=== PATIENT | female | born 1980 ===

== ENCOUNTER 2018-11-18 07:30 | Inpatient (IN) | payer BC ==
[~2018-11-18] VITALS: Ht 157.5 cm; Wt 69.9 kg
[~2018-11-18 07:30] MED LIST: NKM
[2018-12-14] VITALS (16 sets, daily range): BP systolic 103–135; BP diastolic 60–83
--- NOTE | 2018-12-14 02:45 | History and Physical Report ---
DATE OF ADMISSION: 12/14/2018 NOTE: POOR AUDIO REASON FOR ADMISSION: The patient is a 38-year-old female who presented to the hospital to undergo Supracervical Abdominal Hysterectomy and Bilateral Salpingectomy. HISTORY OF PRESENT ILLNESS: The patient has a history of heavy vaginal bleeding. She underwent hysteroscopy and endometrial hydrothermal ablation in the past secondary to heavy vaginal bleeding. She did not respond to these measurements. She continued to have heavy vaginal bleeding with passage of blood clots. She describes menstrual cycles as being long and heavy and quite painful. The patient was also placed on a trial of oral contraceptive in the past. She did not respond to the treatment. She did not tolerate some of the side effects. She did not desire to continue with the oral contraceptive or any other medical treatment. The patient also has complaints of severe pelvic pain and heavy cramping and abdominal pain , which is associated with her period and bleeding; however, continues throughout the entire cycle. The patient has been placed on Anaprox narcotics medication for pain management; however, she continues to complain of the same symptoms. Past ANNUAL GIVING OFFICER HISTORY: Significant for section x2 and spontaneous x2. Significant for hysteroscopy and endometrial hydrothermal ablation. 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 PAST MEDICAL HISTORY: Unremarkable. PAST SURGICAL HISTORY: section and cholecystectomy. The patient has had a history of normal Pap smears in the past. However her last Pap smear revealed ASCUS, atypical squamous cells of undetermined significance. She underwent colposcopy and biopsy, which were all within normal limits. The patient also underwent hysteroscopy and HTA in the past. Endometrial sampling revealed complex hyperplasia without atypia. The patient, however, did not respond to ablation and she continued to have heavy vaginal bleeding. She underwent an ultrasound examination, which revealed uterus measuring 10.9 x 5.4 x 5.6 cm. Endometrium was noted to be thickened. Right Ovary was found to be 3.8 x 2.0 x 2.8 cm. The left ovary was 4.9 x 2.0 x 3.1 cm. ASSESSMENT AND PLAN: This is a 38-year-old female with history of heavy vaginal bleeding and history of pelvic pain. The patient is status post endometrial hydrothermal ablation, however, she continues to have heavy vaginal bleeding and pain, at times bleeding twice a month with passage of blood clots. She also complains of pain and cramping. The patient's symptoms have not resolved with hydrothermal ablation and a trial of oral contraceptives as well as pain medication. We have counseled the patient regarding above findings. We discussed with the patient in detail regarding options of management including medical versus surgical options. The patient does not desire to proceed with any medical management at this point, and she desires to proceed with definitive surgical management of the above namely abdominal hysterectomy. The patient does not desire any future pregnancies and she is quite certain of that. Patient has been seen by Dr. Walker regarding above for second opinion. The patient understood that after abdominal hysterectomy, she will not be able to bear any children. We discussed with the patient regarding total abdominal hysterectomy versus supracervical abdominal hysterectomy. She desires to keep her cervix and understands there is a possibility of future issues with the Pap smear that may require additional procedures. We also discussed with the patient regarding bilateral salpingectomy. The risks and benefits of the procedure were explained to her fully as well. The risk of possible complications including but not limited to bleeding, infection, bladder injury, bowel injury, wound infection, wound dehiscence among other injuries have been explained to her fully. She has been counseled regarding possible blood transfusion and risks associated with that have been explained as well. We discussed with the patient regarding the fact that due to various intraoperative findings, we may need to deviate from the planned procedure or abandon the procedure altogether. We discussed with the patient regarding the fact that based on this procedure, she may require additional procedures in the future. We also discussed with the patient regarding the fact that that that may cause harm and injury to the other vital organs. Risks, benefits, complications, alternatives modes of management were explained to her in great detail. All her questions have been answered fully. We also discussed with the patient regarding the nature of pelvic pain and the fact that after hysterectomy, she may continue to experience pelvic pain , which may be attributed to other etiologies. The patient was seen and evaluated by her primary physician. She has undergone medical clearance for this procedure. The patient understands and desires to proceed with the above procedure. Dev Bradshaw M.D. DR: [place]O JOB#: [id number] CC: MAXIM
[2018-12-14] MEDS ORDERED: ceFAZolin sod 2 GM in D5W 110 ML IVPB ONE (05:30)
--- NOTE | 2018-12-14 06:30 | NUR ---
IV LR WAS STARTED BY ELZBIETA IQBAL RN. NO S/S OF INFILTRATION.
[2018-12-14] MEDS ORDERED: LR 1000ml 1,000 ML IVLG SCH (06:59)
[2018-12-14 07:00] LABS: EOSINOPHILS % (AUTO) 5.2 % (0.0-3.0); HEMATOCRIT 37.6 % (37.0-47.0); HEMOGLOBIN 13.2 G/DL (12.0-16.0); MEAN CORPUSCULAR VOLUME 88 FL (80-99); MONOCYTES % (AUTO) 6.9 % (1.0-10.0); NEUTROPHILS % (AUTO) 56.8 % (45.0-75.0); PLATELET COUNT 185 K/UL (150-450); RED BLOOD COUNT 4.27 M/UL (4.20-5.40); RED CELL DISTRIBUTION WIDTH 11.2 % (11.6-14.8); WHITE BLOOD COUNT 5.9 K/UL (4.8-10.8)
[2018-12-14] MEDS ORDERED: oxyCODONE HCL/Acetaminophen 5/325mg ORAL PRN (07:00)
[2018-12-14] MEDS ORDERED: Acetaminophen (Non formulary) 100 ML IV ONE (07:00)
[2018-12-14] MEDS ORDERED: fentaNYL 100 mcg/2 mL IV PRN (07:00)
[2018-12-14] MEDS ORDERED: HYDROcodone/Acetamin 5/325 tab ORAL PRN (07:00)
[2018-12-14] MEDS ORDERED: Atropine Sulfate 0.4mg/ml inj IVP PRN (07:00)
[2018-12-14] MEDS ORDERED: Labetalol 5mg/ml 20ml vial IV PRN (07:00)
[2018-12-14] MEDS ORDERED: Ketorolac 30mg Inj IV PRN ×2 (07:00)
[2018-12-14] MEDS ORDERED: DiphenhydrAMINE 50mg/ml Inj IVP PRN ×2 (07:00→12:30)
[2018-12-14] MEDS ORDERED: Metoclopramide 10mg/2ml Inj IVP PRN (07:00)
[2018-12-14] MEDS ORDERED: LORazepam Inj 2mg/ml 1ml IV PRN (07:00)
[2018-12-14] MEDS ORDERED: Midazolam 2mg/2ml Inj IVP PRN (07:00)
[2018-12-14] MEDS ORDERED: Meperidine 50mg/ml Inj(FOR RIGORS ONLY) IVP PRN (07:00)
[2018-12-14] MEDS ORDERED: HYDROcodone/Acetamin 7.5/325 tab ORAL PRN (07:00)
--- NOTE | 2018-12-14 07:00 | Anethesia Preoperative Eval ---
Anesthesia Pre-op PMH/ROS General Date of Evaluation: Dec 14, 2018 Time of Evaluation: 07:31 Anesthesiologist: Agnes ASA Score: ASA 2 Mallampati Score Class I : Soft palate, uvula, fauces, pillars visible Class II: Soft palate, uvula, fauces visible Class III: Soft palate, base of uvula visible Class IV: Only hard plate visible Mallampati Classification: Class II Surgeon: Augustine Diagnosis: Vaginal Bleeding Surgical Procedure: Total Abdominal Hysterectomy, Bilateral Salpingectomy Anesthesia History: none Family History: no anesthesia problems Allergies: Coded Allergies: No Known Allergies (Unverified , 07/25/18) Medications: see eMAR Patient NPO?: Yes Past Medical History Hematology/Immune: Reports: anemia PSxH Narrative: Cystectomy, Endometrial Ablation, Cholecystectomy Anesthesia Pre-op Phys. Exam Physician Exam Last Vital Signs Date Time Temp Pulse Resp B/P (MAP) Pulse Ox O2 Delivery O2 Flow Rate FiO2 12/14/18 06:44 Room Air 12/14/18 06:33 97.1 56 20 120/65 (83) 98 Constitutional: NAD Neurologic: CN 2-12 intact Cardiovascular: RRR Respiratory: CTA Gastrointestinal: S/NT/ND Airway Exam Mallampati Score: Class II MO: full ROM: full Teeth: missing, intact Anesthesia Pre-op A/P Labs Hematology Test 12/14/18 06:35 White Blood Count Pending Red Blood Count Pending Hemoglobin Pending Hematocrit Pending Mean Corpuscular Volume Pending Mean Corpuscular Hemoglobin Pending Mean Corpuscular Hemoglobin Concent Pending Red Cell Distribution Width Pending Platelet Count Pending Mean Platelet Volume Pending Neutrophils (%) (Auto) Pending Lymphocytes (%) (Auto) Pending Monocytes (%) (Auto) Pending Eosinophils (%) (Auto) Pending Basophils (%) (Auto) Pending Chemistry Test 12/14/18 06:35 Sodium Level Pending Potassium Level Pending Chloride Level Pending Carbon Dioxide Level Pending Blood Urea Nitrogen Pending Creatinine Pending Estimat Glomerular Filtration Rate Pending Glucose Level Pending Calcium Level Pending Urine Test Test 12/14/18 06:35 Urine HCG, Qualitative Pending Risk Assessment & Plan Assessment: ASA 2 Plan: GA, SED GlideScope Go Status Change Before Surgery: No Pre-Antibiotics Dru grams Ancef IV Given Within 1 Hr of Incision: Yes Time Given: 07:46 Ravinder Alarcon MD Dec 14, 2018 07:00
[2018-12-14 07:07] LABS: ANION GAP 9 mmol/L (5-15); BLOOD UREA NITROGEN 9 mg/dL (7-18); CALCIUM 8.4 MG/DL (8.5-10.1); CARBON DIOXIDE 27 MMOL/L (21-32); CHLORIDE 104 MMOL/L (98-107); CREATININE 0.6 MG/DL (0.55-1.30); POTASSIUM 3.1 MMOL/L (3.5-5.1); SODIUM 140 MMOL/L (136-145)
[2018-12-14] MEDS ORDERED: Sodium Chloride 10ml vial INJ ONE (07:12)
[2018-12-14] MEDS ORDERED: Lidocaine 1% MPF 10mg/ml 5ml ONE ×2 (07:12→09:05)
[2018-12-14] MEDS ORDERED: Dexamethasone 4mg/ml vial ONE (07:12)
[2018-12-14] MEDS ORDERED: Sterile Water Irrig 1000ml IRRIG ONE (07:30)
[2018-12-14] MEDS ORDERED: Propofol 1,000mg/ 100ml btl IV ONE (07:30)
[2018-12-14] MEDS ORDERED: NS Irrig 1000ml ONE (07:30)
[2018-12-14] MEDS ORDERED: NS Irrig 1000ml IRRIG ONE (07:36)
--- NOTE | 2018-12-14 08:09 | Immediate Post-Op Evaluation ---
Immediate Post-Op Evalulation Immediate Post-Op Evalulation Procedure: Total Abdominal Hysterectomy, Bilateral Salpingectomy Date of Evaluation: Dec 14, 2018 Time of Evaluation: 09:55 IV Fluids: 700 LR Blood Products: 0 Estimated Blood Loss: 75 Urinary Output: 300 Blood Pressure Systolic: 114 Blood Pressure Diastolic: 72 Pulse Rate: 79 Respiratory Rate: 16 O2 Sat by Pulse Oximetry: 100 Temperature (Fahrenheit): 98.7 Pain Score (1-10): 2 Nausea: No Vomiting: No Complications 0 Patient Status: awake, reacts, patent, extubated, none Hydration Status: adequate Dru Grams Ancef IV Given Within 1 Hr of Incision: Yes Time Given: 07:46 Ravinder Alarcon MD Dec 14, 2018 08:09
--- NOTE | 2018-12-14 08:11 | Pre-Procedure Note/Attestation ---
Pre-Procedure Note/Attestation Complete Prior to Procedure Procedure Narrative: Supra Cervical Abdominal Hysterectomy. Bilateral Salpingectomy Indications for Procedure Pre-Operative Diagnosis: Heavy Vaginal Bleeding. Pelvic Pain Attestation I attest that I discussed the nature of the procedure; its benefits; risks and complications; and alternatives (and the risks and benefits of such alternatives ), prior to the procedure, with the patient (or the patient's legal contact representative). I attest that, if there was a reasonable possibility of needing a blood transfusion, the patient (or the patient's legal contact representative) was given the [facility] standardized written summary, pursuant to the [place] Blood Safety Act ([place] Health and Safety Code # 1645, as amended). I attest that I re-evaluated the patient just prior to the surgery and that there has been no change in the patient's H&P, except as documented below: Dev Bradshaw MD Dec 14, 2018 08:11
[2018-12-14] MEDS ORDERED: Surgicel 4in x 8in TOPIC ONE (08:45)
[2018-12-14] MEDS ORDERED: CLINDAMYCIN 600 MG IV ONE (09:04)
[2018-12-14] MEDS ORDERED: Rate Change PCA 1 Each MISC PRN ×2 (09:15→12:30)
[2018-12-14] MEDS ORDERED: Glycopyrrolate 0.2mg/ml 1ml Vial ONE (09:25)
[2018-12-14] MEDS ORDERED: Neostigmine 1mg/ml 10ml Inj ONE (09:25)
[2018-12-14] MEDS ORDERED: PCA Education Pamphlet MISC ONE (09:30)
[2018-12-14] MEDS ORDERED: PCA HYDROmorphone 1mg/ml 30 ML IV PRN (09:30)
--- NOTE | 2018-12-14 09:35 | Brief Operative Note ---
Immediate Post Operative Note Operative Note Pre-op Diagnosis: Heavy Vaginal Bleeding. Pelvic Pain Procedure: Laparotomy. Supra Cervical Abdominal Hysterectomy. Bilateral Salpingectomy. Lysis of Adhesions Post-op Diagnosis: Heavy Vaginal Bleeding. Pelvic Pain Post-op Diagnosis: same as pre-op Surgeon: Everton Bradshaw MD Windows Systems Engineer: Radha Walker MD Anesthesia: general Specimen: yes - Uterus. Bilateral Fallopian Tubes Complications: none Condition: stable Fluids: LR Estimated Blood Loss: volume - 200 cc Drains: other - Cassidy Catheter Implant(s) used?: No Dev Bradshaw MD Dec 14, 2018 09:35
[2018-12-14] MEDS: Hydromorphone 0.5mg/0.5ml inj IVP PRN ×2 (10:21→10:38)
--- NOTE | 2018-12-14 11:10 | NUR ---
NURSE NOTES: Namita RN brought patient by bed in stable condition. Alert and oriented x4. No complain of pain or distress at this time. On GEOCHEMICAL MANAGER for pain management. Skin intact and dry. Surgical dressing intact and dry. IV dressing intact and dry. Belonging checked. Bed lowest position. Call light within reach. Will continue to monitor.
[2018-12-14] MEDS ORDERED: LORazepam 1mg tab ORAL PRN (12:30)
[2018-12-14] MEDS ORDERED: Naloxone 0.4mg/ml Inj IVP PRN (12:30)
--- NOTE | 2018-12-14 13:55 | NUR ---
CASE MANAGEMENT:REVIEW 12/14/18 38 YR OLD FEMALE HER FOR ELECTIVE SURGERY SI: HEAVY VAGINAL BLEEDING/PELVIC PAIN 97.1 56 20 120/65 98% ON RA K-3.1 IS: TO SURGERY FOR: HYSTERECTOMY, SENDY SALPINGECTOMY,LYSIS OF ADHESIONS IV ANCEF Q8HRS IVF LR @50/HR FORMING YARDAGE CONTROL OPERATOR DILAUDID : TO MED/SURG 3 EAST POST OP INTERQUAL CRITERIA MET
[2018-12-14] MEDS ORDERED: Dextrose 5%/Lactated Ringer's 1,000 ML IV SCH (14:00)
[2018-12-14] MEDS ORDERED: PCA Education Pamphlet MISC SCH (14:00)
[2018-12-14] MEDS: ceFAZolin sod 2 GM in D5W 110 ML IV SCH ×2 (14:51→22:44)
--- NOTE | 2018-12-14 16:42 | NUR ---
*-* NO INSURANCE INFORMATION IN THE BAR TO SEND CLINICALS *-*
[2018-12-14] MEDS ORDERED: PCA shift volume MISC SCH (19:00)
[2018-12-14] MEDS: PCA shift volume MISC SCH (19:00)
--- NOTE | 2018-12-14 19:30 | NUR ---
HAND-OFF: Report given to Guille NAVARRO. Patient in stable condition.
--- NOTE | 2018-12-14 19:31 | NUR ---
NURSE NOTES: Got report from Chitra NAVARRO. Pt in stable condition. Denies any pain. No s/s of distress or discomfort noted. Pt resting in bed comfortably. Bed in low and locked position, call light within reach, bedside table within reach. Continue to monitor.
[2018-12-15 00:03] VITALS: BP 100/62
[2018-12-15 04:20] VITALS: BP 101/60
[2018-12-15] MEDS: PCA shift volume MISC SCH ×2 (07:00→19:00)
--- NOTE | 2018-12-15 07:15 | NUR ---
HAND-OFF: Report given to Chitra NAVARRO. Endorsed plan of care.
--- NOTE | 2018-12-15 07:20 | NUR ---
NURSE NOTES: Patient lying in bed awake. No complain of pain or distress at this time. On TOW BOAT CAPTAIN for pain management. Skin intact and dry. Surgical dressing intact and dry. IV dressing intact and dry. Bed lowest position. Call light within reach. will continue to monitor.
[2018-12-15 07:38] LABS: BASOPHILS % (AUTO) 0.4 % (0.0-2.0); EOSINOPHILS % (AUTO) 0.2 % (0.0-3.0); HEMATOCRIT 32.3 % (37.0-47.0); HEMOGLOBIN 11.1 G/DL (12.0-16.0); LYMPHOCYTES % (AUTO) 16.2 % (20.0-45.0); MEAN CORPUSCULAR VOLUME 89 FL (80-99); MONOCYTES % (AUTO) 7.5 % (1.0-10.0); NEUTROPHILS % (AUTO) 75.7 % (45.0-75.0); PLATELET COUNT 164 K/UL (150-450); RED BLOOD COUNT 3.64 M/UL (4.20-5.40); RED CELL DISTRIBUTION WIDTH 11.4 % (11.6-14.8); WHITE BLOOD COUNT 9.7 K/UL (4.8-10.8)
[2018-12-15 07:52] LABS: ANION GAP 8 mmol/L (5-15); BLOOD UREA NITROGEN 12 mg/dL (7-18); CARBON DIOXIDE 26 MMOL/L (21-32); CHLORIDE 104 MMOL/L (98-107); CREATININE 0.6 MG/DL (0.55-1.30); POTASSIUM 3.2 MMOL/L (3.5-5.1); SODIUM 138 MMOL/L (136-145)
[2018-12-15 08:00] VITALS: BP 93/57
--- NOTE | 2018-12-15 09:15 | NUR ---
NURSE NOTES: Spoke to regarding patient and new order received. Order read back and carried out.
--- NOTE | 2018-12-15 10:30 | NUR ---
NURSE NOTES: Removed Cassidy catheter with 400 ml yellow urine. No complain of pain or discomfort. Patient tolerated procedure well. Will continue to monitor.
[2018-12-15 12:00] VITALS: BP 109/61
[2018-12-15] MEDS: Potassium Chloride 20 MEQ in Dextrose 5%/Lactated Ringer's 1,000 ML IV SCH ×2 (12:00→20:08)
--- NOTE | 2018-12-15 12:23 | 48 Hour Post Anesthesia Eval ---
Post Anesthesia Evaluation Procedure: Total Abdominal Hysterectomy, Bilateral Salpingectomy Date of Evaluation: Dec 15, 2018 Time of Evaluation: 12:22 Blood Pressure Systolic: 109 0: 58 Pulse Rate: 64 Respiratory Rate: 20 Temperature (Fahrenheit): 97.6 O2 Sat by Pulse Oximetry: 98 Airway: patent Nausea: No Vomiting: No Pain Intensity: 2 Hydration Status: adequate Cardiopulmonary Status: stable Mental Status/LOC: patient returned to baseline Follow-up Care/Observations: n/a Post-Anesthesia Complications: none Follow-up care needed: ready to discharge Dustin Plascencia MD Dec 15, 2018 12:23
--- NOTE | 2018-12-15 13:37 | NUR ---
*-* NO INSURANCE INFORMATION IN THE BAR TO SEND CLINICALS *-*
--- NOTE | 2018-12-15 13:41 | NUR ---
CASE MANAGEMENT:REVIEW 12/15/18 SI: POD #1 S/P HYSTERECTOMY, SENDY SALPINGECTOMY,LYSIS OF ADHESIONS 98.2 65 17 109/61 99% ON RA H/H-11.1/32.3 K-3.2 IS: MOTRIN PO Q6HRS IVF+KCL@ 125/HR CANVAS SHRINKER DILAUDID : MED/SURG [facility]
[2018-12-15 16:00] VITALS: BP 121/69
[2018-12-15] MEDS ORDERED: Docusate 100mg cap ORAL SCH (18:00)
--- NOTE | 2018-12-15 18:15 | Progress Note ---
DATE: 12/15/2018 SUBJECTIVE: The patient without any complaints. OBJECTIVE: VITAL SIGNS: Afebrile, stable. HEENT: Normocephalic, atraumatic. CHEST: Clear to auscultation. ABDOMEN: Soft, nontender, nondistended. Incision clean, dry, intact. EXTREMITIES: No cyanosis. No clubbing. Lochia minimal. BACK: No CVA tenderness. ASSESSMENT: 1. Status post total abdominal hysterectomy and bilateral salpingectomy. Postoperative day #1. 2. The patient is doing well. 3. Cassidy catheter has been discontinued. 4. The patient will start to ambulate. 5. The patient is started on clear liquid diet. 6. We will plan to discontinue ELECTRONIC MAINTENANCE SUPERVISOR and start the patient on p.o. pain management. 7. We discussed with the patient regarding the procedure and intraoperative findings. Questions have been answered. She understands and agrees with management. Dev Bradshaw M.D. DR: IRMA JOB#: [id number] CC: MAXIM
--- NOTE | 2018-12-15 18:15 | NUR ---
NURSE NOTES: Patient voided 200 ml yellow urine. No complain of pain or discomfort. Will continue to monitor.
--- NOTE | 2018-12-15 19:30 | NUR ---
HAND-OFF: Report given to Simi NAVARRO. Patient in stable condition.
--- NOTE | 2018-12-15 19:42 | NUR ---
NURSE NOTES: Received report from RAMON Soares. Patient is awake lying semi-larios's; resting comfortably. No signs of acute distress noted; complains of some pain. Mother at bedside. AOx4; able to make needs known. Ambulates with assistance. Checked IV site, lines, and IV rate; patent and running. No erythema, bleeding, or infiltration noted. AIR DEFENSE ARTILLERY SENIOR SERGEANT pump at bedside for use as needed. Bed at lowest position, brakes on, siderails up x2. Call light within reach. Will continue to monitor.
[2018-12-15 20:00] VITALS: BP 90/51
[2018-12-16] VITALS: BP 92/60
[2018-12-16 03:57] VITALS: BP 90/47
[2018-12-16] MEDS: Potassium Chloride 20 MEQ in Dextrose 5%/Lactated Ringer's 1,000 ML IV SCH ×3 (03:58→19:29)
--- NOTE | 2018-12-16 04:02 | NUR ---
NURSE NOTES: Patient is asleep lying semi-larios's; resting comfortably. Easily arousable to verbal and tactile stimuli. No signs of acute distress or pain noted at this time. EDUCATIONAL THERAPIST pump at bedside for use as needed. Mother also at bedside.
[2018-12-16 06:41] LABS: ANION GAP 7 mmol/L (5-15); BLOOD UREA NITROGEN 5 mg/dL (7-18); CARBON DIOXIDE 29 MMOL/L (21-32); CHLORIDE 104 MMOL/L (98-107); CREATININE 0.6 MG/DL (0.55-1.30); POTASSIUM 3.2 MMOL/L (3.5-5.1); SODIUM 140 MMOL/L (136-145)
[2018-12-16] MEDS: PCA shift volume MISC SCH (07:00)
--- NOTE | 2018-12-16 07:15 | NUR ---
NURSE NOTES: Patient is in bed awake and able to verbalize needs. Patient is stable. Denies SOB at this time. Patient encouraged to use call light for assistance, verbalized understanding. Surgical site is clean, dry, and intact. Patient complains of pain at this time, will administer pain medication as ordered. Patient is comfortable in bed with call light within reach. Will continue to monitor.
--- NOTE | 2018-12-16 07:45 | NUR ---
HAND-OFF: Report given to RAMON Macias. Patient is awake lying semi-larios's; resting comfortably. Mother at bedside. PRINCIPAL NETWORK ENGINEER pump also at bedside for use as ordered. In stable condition.
[2018-12-16 08:00] VITALS: BP 99/58
--- NOTE | 2018-12-16 08:54 | NUR ---
CASE MANAGEMENT:REVIEW 12/16/18 SI: POD #2 S/P HYSTERECTOMY, SENDY SALPINGECTOMY,LYSIS OF ADHESIONS 98.4 65 18 90/47 96% ON RA K-3.2 IS: MOTRIN PO Q6HRS IVF+KCL@ 125/HR CONFIGURATION DEVELOPER DILAUDID : MED/SURG 3 EAST DCP: FROM HOME
[2018-12-16] MEDS ORDERED: HYDROcodone/Acetamin 5/325 tab ORAL PRN (09:00)
[2018-12-16] MEDS: Docusate 100mg cap ORAL SCH ×2 (09:04→17:41)
--- NOTE | 2018-12-16 11:12 | NUR ---
*-* INSURANCE *-* ALL CLINICALS AND REVIEWS HAVE BEENFAXED TO: [place] MALIK:DICK P:[phone] F:[phone]
[2018-12-16 12:00] VITALS: BP 108/64
--- NOTE | 2018-12-16 12:40 | NUR ---
NURSE NOTES: Patient refused dulcolax suppository. Patient aware of risks and benefits of refusing medication. Will continue to monitor.
--- NOTE | 2018-12-16 12:45 | NUR ---
NURSE NOTES: Patient is able to pass gas, advanced diet to regular as ordered. Will continue to monitor.
--- NOTE | 2018-12-16 13:45 | NUR ---
NURSE NOTES: Patient tolerated regular diet. No complaints of abdominal pain or discomfort at this time.
--- NOTE | 2018-12-16 15:17 | NUR ---
HAND-OFF: Report given to Josh NAVARRO. Patient is stable.
--- NOTE | 2018-12-16 15:20 | NUR ---
NURSE NOTES: Received report from RAMON Macias. Rounding done with outgoing nurse. Patient a/o x4 lying on the bed. No respiratory distress noted. Denies pain at this time. Right hand IV site is patent. Mother is at bed side. Bed in lowest position, call light within reach. Will continue to monitor.
[2018-12-16 16:00] VITALS: BP 110/61
--- NOTE | 2018-12-16 19:25 | NUR ---
HAND-OFF: Report given to RAMON Mendosa. Patient is stable.
--- NOTE | 2018-12-16 19:49 | NUR ---
NURSE NOTES: RECEIVED PATIENT LYING IN BED, AWAKE, ALERT/ORIENTED X4, SOLOMON ISLANDER SPEAKING, ABLE TO MAKE SIMPLE NEEDS KNOWN IN GREEK. NO SIGNS AND SYMPTOMS OF ACUTE CARDIO RESPIRATORY DISTRESS/SHORTNESS OF BREATH, DENIES CHEST PAIN. S/P TOTAL ABDOMINAL HYSTERECTOMY AND BILATERAL SALPINGECTOMY- ABDOMEN SOFT, NON TENDER, NON DISTENDED, BOWEL SOUNDS AUDIBLE,INCISION CLEAN AND DRY, DENIES ABDOMINAL PAIN. SIDE RAILS UP X2, BED IN LOWEST POSITION FOR SAFETY. ENCOURAGED PATIENT TO UTILIZE CALL LIGHT FOR ASSISTANCE, VERBALIZED UNDERSTANDING. FAMILY REMAIN AT BEDSIDE. NAD.
[2018-12-16 20:00] VITALS: BP 114/63
[2018-12-17] VITALS: BP 125/65
--- NOTE | 2018-12-17 | Progress Note ---
DATE: 12/16/2018 SUBJECTIVE: The patient is without any complaints. OBJECTIVE: VITAL SIGNS: Afebrile and stable. HEENT: Normocephalic and atraumatic. ABDOMEN: Soft, nontender, and nondistended. Incision is clean, dry, and intact. EXTREMITIES: No cyanosis. No clubbing. Lochia minimal. BACK: No CVA tenderness. ASSESSMENT AND PLAN: 1. Status post total abdominal hysterectomy and bilateral salpingectomy postoperative day #2. 2. The patient is doing well. 3. She is tolerating her diet. Advance diet as tolerated. 4. The patient is able to urinate without any difficulty and she is ambulating. 5. We plan to discharge the patient tomorrow. Discussed with the patient regarding followup and management. Dev Bradshaw M.D. DR: [place] JOB#: [id number] CC:
[2018-12-17] MEDS: Potassium Chloride 20 MEQ in Dextrose 5%/Lactated Ringer's 1,000 ML IV SCH ×2 (03:54→11:30)
[2018-12-17 04:00] VITALS: BP 113/80
--- NOTE | 2018-12-17 06:45 | NUR ---
NURSE NOTES: DC HOME TODAY, PATIENT STATED THAT SHE WANT TO LEAVE AT APPROXIMATELY 1100/1130-
--- NOTE | 2018-12-17 07:30 | NUR ---
HAND-OFF: Report given to CATHIE TIPTON.
[2018-12-17 08:00] VITALS: BP 115/57
[2018-12-17] MEDS: Docusate 100mg cap ORAL SCH (08:23)
--- NOTE | 2018-12-17 08:55 | NUR ---
NURSE NOTES: RECEIVED PATIENT A/A/OX4, ABLE TO COMMUNICATE IN POLISH. MOM, LAZARA @ BEDSIDE. PATIENT ANTICIPATE D/C HOME TODAY. VERIFIED HOME ADDRESS. SP[facility], [facility] WILL PROVIDE TRANSPORTATION. PERSONAL BELONGINGS REVIEWED AND NOTED. PATIENT IS TOLERATING FOOD INTAKE WELL. STABLE THROUGHOUT THE NIGHT. MOVED BM LAST WAS 12/16 WITH NO DISTRESS/ DISCOMFORT NOTED. BJ ON LOWER ABDOMEN INTACT, DRY AND OPEN TO AIR. PATIENT STATED PMD DISCUSSED F/U VISIT AND UNDERSTOOD. NO C/O PAIN/DISCOMFORT @ THIS TIME. AWAITING FOR SPOUSE THIS MORNING AT APPROXIMATELY BEFORE 12PM. WILL CONT TO MONITOR.
--- NOTE | 2018-12-17 12:10 | NUR ---
NURSE NOTES: d/c home with instructions. instructed with IS. explained what to look for in terms of s/sx and call MD or 911. verbalize understanding. removed IV heplock. personal belongings intact. surgical marlin on abdomen clean, intact and dry. no acute resp distress noted. motrin given for pain as ordered for mild pain.
--- NOTE | 2018-12-18 03:45 | Operative Note - Dictated ---
DATE OF OPERATION: 12/16/2018 PREOPERATIVE DIAGNOSIS: Pelvic pain, pelvic pressure, and heavy vaginal bleeding. POSTOPERATIVE DIAGNOSIS: Pelvic pain, pelvic pressure, and heavy vaginal bleeding. PROCEDURE: Laparotomy, supracervical abdominal hysterectomy, bilateral salpingectomy, and lysis of adhesions. SURGEON: Dev Bradshaw M.D. DIGITAL PRODUCT SPECIALIST: . ANESTHESIA: General. ESTIMATED BLOOD LOSS: 20 mL. COMPLICATIONS: None. CONDITION: Stable. DRAINS: Cassidy catheter to gravity. PROCEDURE: The patient was taken to the operating room. General anesthesia was administered by anesthesiologist. She was prepped and draped in usual sterile fashion. An incision was made 2 cm above the pubic symphysis over the skin. It was carried down to the skin, fat, and the fascia. Muscle in the midline. Peritoneal cavity was entered carefully. Upon entering the peritoneal cavity, pelvic cavity was examined. Adhesions were noted in the left adnexal region as well as some adhesions of the omentum through the anterior aspect of the uterus. At this time, we proceeded to the bowel using moist laparotomy sponges and the incision. At this time, we proceeded with lysis of adhesions. These adhesions were noted and then the incisions involving the omentum. This was done very carefully and meticulously. Also, the adhesions noted in the left adnexal region were also done in a very meticulous fashion. Two Pean clamps were placed on the cornea and used for retraction. The round ligament on both sides were identified, clamped, transected, and suture ligated using #1 Vicryl suture. The anterior leaf of the broad ligament was then incised along the bladder reflection to the midline from both sides. The bladder was then gently dissected off the lower uterine segment and the cervix with a combination of blunt and sharp dissections. The infundibulopelvic ligaments on both sides were then doubly clamped, transected, and suture ligated using #1 Vicryl suture. Hemostasis was visualized. The uterine vessels were then identified and skeletonized bilaterally, clamped with Papo clamps x3, and then transected and suture ligated in a very meticulous fashion using #1 Vicryl suture. Again hemostasis was noted. Additional bites were then taken on both sides with #1 Vicryl suture. Excellent hemostasis was noted. At this time, the uterus was amputated at the level of the internal os. bag to the top. We are going to start from where I left off the bladder, was then gently dissected off the lower leads and segments and this with a combination of blunt and sharp dissection. At this time, a vascular space was noted in the peritoneal reflection and the ovarian ligaments on both sides were then doubly clamped, cut, and suture ligated using #1 Vicryl suture. Hemostasis was visualized. The uterine arteries were then skeletonized bilaterally, clamped with Papo clamps, transected, and suture ligated with #1 Vicryl suture. Excellent hemostasis was noted. Additional bites were taken on both sides using #1 Vicryl suture. Excellent hemostasis noted. The uterus was then amputated at the level of the internal os and was sent to pathology. We proceeded to cauterize the internal os suture bleeding. At this time, the stump was suture ligated using #1 Vicryl suture in [id number] fashion. Excellent hemostasis was noted. The right and left ovaries appeared grossly normal. Right and left fallopian tubes appeared grossly normal. At this point, we proceeded to resect the fallopian tubes bilaterally. This was done using a free tie along with stick tie #1 Vicryl suture on both sides. Excellent hemostasis noted. Irrigation of the pelvis was performed and Surgicel was applied to the operative site to ensure further hemostasis. All laparotomy sponges were then removed from the abdomen. All instruments were removed from the abdomen. The muscle was then reapproximated using #1 Vicryl suture. Fascia was repaired #1 Monocryl suture in a continuous fashion in 2 layers. Irrigation of the subcutaneous tissue was performed and skin edges were reapproximated and the marlin are placed. Sponge and instrument counts were correct x3 at the end of the procedure. The patient tolerated the procedure well and was transferred to recovery room in a stable condition. Dev Bradshaw M.D. DR: ORLANDO JOB#: [id number] CC:
--- NOTE | 2018-12-19 09:27 | Discharge Summary ---
Discharge Summary Hospital Course Date of Admission Dec 14, 2018 at 05:50 Date of Discharge Dec 17, 2018 at 12:20 Admitting Diagnosis Heavy vaginal bleeding, pelvic pain Reason for Hospitalization: Elective surgery HPI Ai Perez is a 38 year old female who was admitted on Dec 14, 2018 at 05:50 for heavy vaginal bleeding and pelvic pain. 38-year-old female with history of heavy vaginal bleeding and history of pelvic pain, status post endometrial hydrothermal ablation. However, she continued to have heavy vaginal bleeding and pain, at times bleeding twice a month with passage of blood clots. She also complained of pain and cramping. The patient's symptoms have not resolved with hydrothermal ablation and a trial of oral contraceptives as well as pain medication. Options of further management were discussed with patient, including medical versus surgical options. The patient did not desire to proceed with any medical management at that point , and desired to proceed with definitive surgical management of the above, namely abdominal hysterectomy. The patient did not desire any future pregnancies , and she was quite certain of that. Patient was admitted for elective surgery. Procedures s/p 12/14/[address] Bradshaw Laparotomy, supracervical abdominal hysterectomy, bilateral salpingectomy, and lysis of adhesions. Hospital Course status post surgery course of recovery uneventful initially IV fluids pain management was initially addressed with CARDIOLOGY TECH, which discontinued the next day and patient was switched to oral analgesics pain management was carefully assessed and addressed , pain was controlled Cassidy catheter was discontinued the next day;b patient was able to urinate without difficulty mobilization out of bed and ambulation was encouraged ; patient was able to ambulate without difficulties incentive spirometry encouraged while in the bed dressing removed by surgeon ; marlin intact , incision open to air , clean, dry , and intact patient started on diet slowly and was advanced as tolerated , patient was able to tolerate diet bowel regimen instituted discharge instruction provided patient to follow-up with surgeon as outpatient as advised by surgeon FINAL DIAGNOSES heavy vaginal bleeding pelvic pain status post total abdominal hysterectomy and bilateral salpingectomy Discharge Medications Discontinued Medications: No Known Medications* (NKM - No Known Medications*) . 0 ., 0 Refills Discharge Condition Upon Discharge: stable Discharge Disposition Patient was discharged to Home (01) Discharge Instructions Discharge Instructions Special Instructions I have been assigned to complete a D/C Summary on this account. I was not involved in the patient management Ekaterina Hernandez NP Dec 19, 2018 09:27
--- NOTE | 2018-12-19 13:48 | NUR ---
*-* INSURANCE *-* DISCHARGE SUMMARY HAS BEEN FAXED TO: [place] CLEMENTS:DICK P:[phone] F:[phone]
== END 2018-12-17 12:20 | disposition home or self-care (01) | DRG 743 ==
LOC: SDSOVERFLO 12-14 05:50 → 3E 12-14 10:11
PROC: 0UT70ZZ Resection of Bilateral Fallopian Tubes, Open Approach (ICD-10-PCS; 2018-12-14)
PROC: 0UT90ZL Resection of Uterus, Supracervical, Open Approach (ICD-10-PCS; 2018-12-14)
PROC: 0UN60ZZ Release Left Fallopian Tube, Open Approach (ICD-10-PCS; principal; 2018-12-14 07:30)
PROC: 0DNU0ZZ Release Omentum, Open Approach (ICD-10-PCS; principal; 2018-12-14 07:30)
DX: N93.9 Abnormal uterine and vaginal bleeding, unspecified (principal); R10.2 Pelvic and perineal pain; N73.6 Female pelvic peritoneal adhesions (postinfective); Z90.49 Acquired absence of other specified parts of digestive tract
CPT/HCPCS: 36415; 80048; 81025; 85025; 86850; 86900; 86901; 87081; 94003; 94150; J2405; J2710; J8499; S0077